=== PATIENT | female | born 1970 | race Caucasian/White ===

== ENCOUNTER 2025-01-10 14:43 | Emergency (ER) | payer BC, SELFPAY ==
[2025-01-10 14:48] VITALS: BP 146/87
[2025-01-10] MEDS: TORADOL 15 MG IV (17:29)
[2025-01-10 17:40] VITALS: BP 152/83
[2025-01-10 17:49] LABS: % Immature Granulocytes 0.5 % (0-0.5); % Lymphocytes 19.8 % (20.5-51.1); % Monocytes 7.5 % (1.7-9.3); % Neutrophils 72.2 % (42.2-75.2); Absolute Lymphocytes 1.3 10^3/uL (1.2-3.4); Absolute Monocytes 0.5 10^3/uL (0.1-0.6); Absolute Neutrophils 4.6 10^3/uL (1.4-6.5); Hematocrit 38.3 % (37.0-47.0); Hemoglobin 13.5 g/dL (12.0-16.0); Mean Corp Hgb Conc. 35.2 g/dL (33.0-37.0); Mean Corpuscular Hgb 31.3 pg (27.0-31.0); Mean Corpuscular Volume 88.7 fL (81.0-99.0); Nucleated Red Blood Cells % 0 %; Platelet Count 216 10^3/uL (130-400); Red Blood Cell Count 4.32 10^6/uL (4.20-5.40); Red Cell Dist. Width 13.2 % (11.5-14.5); White Blood Cell Count 6.4 10^3/uL (4.8-10.8)
[2025-01-10 18:00] VITALS: BP 139/94
[2025-01-10 18:01] LABS: ALT (SGPT) 17 U/L (0-35); AST (SGOT) 22 U/L (14-36); Albumin 4.3 g/dl (3.5-5.0); Alkaline Phosphatase 62 U/L (38-126); Blood Urea Nitrogen 20 mg/dl (7-17); Calcium 9.7 mg/dl (8.4-10.2); Carbon Dioxide 27 mmol/L (22-30); Chloride 106 mmol/L (98-107); Glucose 104 mg/dl (70-99); Potassium 3.9 mmol/L (3.5-5.1); Sodium 139 mmol/L (135-145); Total Bilirubin 0.7 mg/dl (0.2-1.3); Total Protein 6.9 g/dl (6.3-8.2); eGFR > 60.00
[2025-01-10 19:00] VITALS: BP 133/81
--- NOTE | 2025-01-10 20:08 | ED.GENMED ---
History of Present Illness
General
Chief Complaint: Headache
Source: patient
Exam Limitations: none
Time Seen by Provider: 01/10/25 16:57
Nursing documentation reviewed up to this point in time: agreed with
History of Present Illness
History of Present Illness:
54-year-old female presenting to the emergency department today with concerns of a flashing to the right eye followed by trouble reading and then immediately after a pounding headache to the frontal part of her head. 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
migraines in the past. Has not had 1 in the last few years. Now with no ongoing visual symptoms but ongoing frontal headache. No medication taken prior to arrival. No chest pain shortness of breath fevers no recent illness.
Past History
Past History
ED Past Medical History: Psychiatric (Generalized anxiety disorder) and Other (Palpitations, mitral valve prolapse)
Social History
Tobacco: Non-smoker
Alcohol: Occasional
Personal:
Living: with family
Employment: Employed (Pharmacist)
Family History
Family History: Other
Review of Systems
Review of Systems
Allergies reviewed?: Yes
All Other Systems: ROS reviewed and negative except as documented in HPI and ROS
Phy Exam
Physical Exam
Physical Exam:
GENERAL: Alert , in no apparent distress
EYE: pupils equal and reactive
NECK: Supple, no significant adenopathy.
ENT: o/p clr, mmm.
CARDIAC: Regular rate and rhythm .
LUNGS: Clear breath sounds bilaterally, no acute respiratory distress, no wheezes/rales/rhonchi
ABDOMEN: Soft, without focal tenderness, no r/g, no cvat
NEUROLOGICAL: Alert and oriented, no focal neuro deficits 5 out of 5 upper and lower extremity strength normal sensation when palpating bilaterally normal finger-nose and [id number] no pronator drift
SKIN: Warm and dry, skin intact.
MUSCULOSKELETAL: No edema, well perfused.
PSYCH: Normal and appropriate interaction.
Course
Orders/Labs/Results
Orders:
Orders
01/10/25 14:53
CT Head W/o Iv Contrast Urgent
Comment:
Reason For Exam: visual changes, headache
01/10/25 17:11
Diphenhydramine [Benadryl] 25 mg IV NOW STA
Ketorolac [Toradol] 15 mg IV NOW STA
Metoclopramide [Reglan] 10 mg IV NOW STA
01/10/25 17:12
EKG [Electrocardiogram (*1)] Urgent
Reason for Study: Fatigue / Weakness
EKG- Treatment ONCE
01/10/25 17:31
CBC/With Diff [Complete Blood Count/With Diff] Urgent
CMP [Comprehensive Metabolic Panel] Urgent
Abnormal Lab Results
01/10/25
17:31
MCH 31.3 H pg
(27.0-31.0)
MPV 11.0 H fL
(7.4-10.4)
Lymphocytes % 19.8 L %
(20.5-51.1)
BUN 20 H mg/dl
(7-17)
Glucose 104 H mg/dl
(70-99)
01/10/25 17:31
01/10/25 17:31
Vital Signs
Initial and Last Documented VS:
Initial Vital Signs
Temp Pulse Resp BP Pulse Ox
98.1 F 84 18 146/87 100
01/10/25 14:48 01/10/25 14:48 01/10/25 14:48 01/10/25 14:48 01/10/25 14:48
Last Documented Vital Signs
Temp Pulse Resp BP Pulse Ox
98.1 F 84 18 152/83 100
01/10/25 14:48 01/10/25 14:48 01/10/25 14:48 01/10/25 17:40 01/10/25 17:41
MDM/Problems Addressed
MDM/Problems Addressed:
54-year-old female presenting to the emergency department today with concerns of right eye visual changes as well as trouble reading and some confusion for a brief period of time followed by a throbbing frontal headache no additional neurologic
symptoms otherwise. Here normal neurologic examination. Patient no distress. Vital signs normal CT head without emergent findings. EKG normal. Case discussed with neurology seems more consistent with migraine this was discussed with the patient
he will follow-up closely as an outpatient. Otherwise stable for discharge. Return precautions given.
*Critical Care Note
Total Time (30-74mins, 75-104mins- exclusive of procedures): Not Applicable
ED Attending Note
-
Portions of this chart may have been created with voice recognition software.� Occasional wrong word or��sound alike� substitutions may have occurred due to the inherent limitations of voice recognition software.
Discharge Plan
Departure
Patient Disposition: Home (Routine Discharge)
Date of Disposition: 01/10/25
Time of Disposition: 20:10
Patient with high blood pressure during this ER visit?: No
Condition: Good
Covid-19: Not Applicable
Discharge Problem:
Headache
Instructions: Headache, Adult (DC)
Referrals:
Oswaldo Ortega MD [Family Provider] -
Maxim Chacon MD [Non-Admitting Privileges] -
Stand Alone Forms: Return to Work
Activity Restrictions/Additional Instructions:
You came to the emergency department today with concerns of headache and additional neurologic symptoms. Here you have a reassuring assessment. Please follow closely with neurology otherwise return for any worsening, new or concerning symptoms.
Interventions
Interventions:
*Risk Screen - Suicide Last Done: 01/10/25 14:48
*General Assessment Last Done: 01/10/25 14:48
*Neglect/Abuse Screening Last Done: 01/10/25 14:48
*ED- Fall Risk Assessment Last Done: 01/10/25 17:05
*ED COVID-19 Vaccine History Last Done: 01/10/25 17:05
ED- Neurological Assessment Last Done: 01/10/25 17:05
Discharge Date and Time
Print Language: [email or web address]
== END 2025-01-10 20:36 | disposition home or self-care (01) ==
LOC: EMR 14:43
PROVIDERS: Physician Assistant; EMERGENCY PHYSICIAN Emergency Medicine; FAMILY PHYSICIAN Family Medicine
DX: R51.9 Headache, unspecified (principal); H53.8 Other visual disturbances; F41.1 Generalized anxiety disorder; I34.1 Nonrheumatic mitral (valve) prolapse; Z88.8 Allergy status to other drugs, medicaments and biological substances
CPT/HCPCS: 99284; 96374; 70450; 80053; 85025; 93005

== ENCOUNTER → 2025-02-04 08:28 | Outpatient (REF) | payer BC, SELFPAY | LOC: RAD 08:28 | PROVIDERS: ATTENDING PHYSICIAN Specialist; FAMILY PHYSICIAN Physician Assistant Medical | DX: G45.9 Transient cerebral ischemic attack, unspecified (principal) | CPT/HCPCS: 93880 ==